=== PATIENT | female | born 1945 | race Caucasian/White ===

== ENCOUNTER → 2017-09-24 | Outpatient (CLI) | payer MEDICARE, OTHER ==
[~2017-09-24] MED LIST: BACTROBAN2% TP; CEFTIN 250MG T250 MG PO; DURAGESIC TD; EAC TD; FLEXERIL10 MG PO; HYDROMORPHONE IV; HYZAAR 50-12.51 EACH PO; LOVENOX 4040 MG/0.4 SC; ONDANSETRON4 MG/2 ML IV; POTASSIUM CHLO10 ME3 PO; VICODIN 5/500 T1 TAB PO; VITAMIN D1000 IU PO; [UNRECOGNIZED DRUG - OTHER]
--- NOTE | 2017-09-24 14:47 | RADIOLOGY REPORT PS360 ---
US ABD(COMPLETE-MULTI ORGANS HISTORY: LLQ PAIN, SWELLING, MASS ORDERING PHYSICIAN: iSenna Deutsch MD PATIENT AGE: 72 years COMPARISON: None FINDINGS: PANCREAS:Unremarkable. No obvious mass or abnormal fluid collection. No ductal dilatation LIVER:No focal liver lesions demonstrated. Homogeneous echogenicity. No intrahepatic biliary ductal dilatation evident RIGHT KIDNEY:Unremarkable. Normal size and echogenicity. No hydronephrosis LEFT KIDNEY:Unremarkable. No hydronephrosis. Normal size and echogenicity. GALLBLADDER:Gallstone is noted. No gallbladder wall thickening or pericholecystic fluid. Common bile duct is normal at 4 mm. AORTA:No evidence of aneurysmal dilatation. SPLEEN:Unremarkable. Normal size and echogenicity ASCITES:None demonstrated. ABDOMINAL WALL: In the left side abdomen in the region of the palpable abnormality there is appears to be an abdominal wall hernia is suggest correlation with CT for confirmation. Cannot determine the exact contents of the hernia with ultrasound. IMPRESSION: 1. Cholelithiasis. 2. Abdominal wall hernia corresponds to soft tissue mass in the left-sided abdomen. This may be better evaluated with CT.
--- NOTE | 2017-09-24 14:47 | RADIOLOGY REPORT PS360 ---
US ABD(COMPLETE-MULTI ORGANS HISTORY: LLQ PAIN, SWELLING, MASS ORDERING PHYSICIAN: Sienna Deutsch MD PATIENT AGE: 72 years COMPARISON: None FINDINGS: PANCREAS:Unremarkable. No obvious mass or abnormal fluid collection. No ductal dilatation LIVER:No focal liver lesions demonstrated. Homogeneous echogenicity. No intrahepatic biliary ductal dilatation evident RIGHT KIDNEY:Unremarkable. Normal size and echogenicity. No hydronephrosis LEFT KIDNEY:Unremarkable. No hydronephrosis. Normal size and echogenicity. GALLBLADDER:Gallstone is noted. No gallbladder wall thickening or pericholecystic fluid. Common bile duct is normal at 4 mm. AORTA:No evidence of aneurysmal dilatation. SPLEEN:Unremarkable. Normal size and echogenicity ASCITES:None demonstrated. ABDOMINAL WALL: In the left side abdomen in the region of the palpable abnormality there is appears to be an abdominal wall hernia is suggest correlation with CT for confirmation. Cannot determine the exact contents of the hernia with ultrasound. IMPRESSION: 1. Cholelithiasis. 2. Abdominal wall hernia corresponds to soft tissue mass in the left-sided abdomen. This may be better evaluated with CT.
== END ==
LOC: RAD 08:11
DX: R19.04 Left lower quadrant abdominal swelling, mass and lump (principal)

== ENCOUNTER → 2017-10-01 | Outpatient (CLI) | payer MEDICARE, OTHER ==
[2017-10-01 09:22] LABS: BUN 17 mg/dL (7-18); GFR (ESTIMATED) 71 ML/MIN (59-)
== END ==
LOC: LAB 08:43
PROVIDERS: Nurse Practitioner Family
DX: R19.04 Left lower quadrant abdominal swelling, mass and lump (principal)

== ENCOUNTER → 2017-10-06 | Outpatient (CLI) | payer MEDICARE, OTHER ==
--- NOTE | 2017-10-06 17:46 | RADIOLOGY REPORT PS360 ---
CT ABD PELVIS W/ CONTRAST CLINICAL INDICATION: Left lower quadrant abdominal pain and swelling with a abdominal wall mass/lump in the left lower quadrant with abnormal ultrasound suggesting hernia in the left lower quadrant. LLQ ABD SWELLING,MASS,LUMP ORDERING PHYSICIAN: Sienna Deutsch MD PATIENT AGE: 72 years COMPARISON: None TECHNIQUE: Axial images obtained with sagittal and coronal reformats. PROCEDURE: Oral Contrast: Redicat IV Contrast: 75 mL's of Isovue-370 . FINDINGS: There are coronary artery calcifications. No acute finding in the lung bases. Liver has an unremarkable appearance. Gallstones are noted. 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 There is some residual enhancing soft tissue density in the left upper quadrant likely related to residual splenic tissue or splenule at 4.4 x 2.7 cm. There are surgical clips in the left upper quadrant. The adrenal glands and pancreas are unremarkable. No renal mass, hydronephrosis or obstructing renal or ureteral calculi evident. No evidence of appendicitis or diverticulitis. Prior hysterectomy. There is a focal defect in the lateral aspect of the left abdominal wall at the semilunaris line consistent with a spigelian hernia containing fat. This corresponds to the abnormality noted on the ultrasound. There is also a tiny umbilical hernia containing fat. Artifact is present from left hip prosthesis. There are old bilateral pubic rami fractures and old left-sided rib fractures. IMPRESSION: 1. Cholelithiasis. 2. 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 3. Left-sided spigelian hernia containing fat small umbilical hernia containing fat 4. Coronary artery disease
== END ==
LOC: RAD 10:07
DX: R19.04 Left lower quadrant abdominal swelling, mass and lump (principal)
CPT/HCPCS: Q9967